=== PATIENT | female | born 1965 | race Caucasian/White ===

== ENCOUNTER 2017-05-11 19:56 | Observation (INO) | payer OTHER ==
[2017-05-11] MEDS ORDERED: D50W 25 GM/50 ML SYRINGE IV ONE (21:08)
[2017-05-11 21:35] LABS: Absolute Lymphocytes (CBC) 1.3 K/uL (0.7-4.9); Absolute Monocytes 0.4 K/uL (0.1-1.3); Absolute Neutrophil 3.3 K/uL (1.8-8.0); Basophils % 0.4 % (0-1.3); Eosinophils % 6.1 % (0-4.4); Hematocrit 42.7 % (36.0-45.0); Lymphocytes % 24.7 % (15.3-44.8); MCH 31.3 pg (27.0-35.0); MCV 94.5 fL (80-100); MPV 9.8 fL (7.6-11.3); Monocytes % 7.2 % (3.3-12.3); RBC Red Blood Cell Count 4.52 M/uL (3.86-4.86)
[2017-05-11 21:38] LABS: Protime INR 1.03
[2017-05-11 21:44] LABS: Potassium 3.8 mEq/L (3.6-5.0)
[2017-05-11 21:48] LABS: Urine Blood 2+ (NEG); Urine Glucose NEGATIVE (NEG); Urine Protein 3+ (NEG)
[2017-05-11 21:50] LABS: Albumin 3.2 g/dL (3.2-5.5); Bilirubin Direct 0.1 mg/dL (0-0.2); Bilirubin Total 0.6 mg/dL (0.3-1.2); Protein, Total 6.1 g/dL (6.0-8.3)
[2017-05-11 21:54] LABS: Urine Bacteria LOADED /HPF (<20); Urine Culture Reflex Order REFLEXED; Urine Mucus LIGHT /HPF (NONE SEEN)
[2017-05-11 22:01] LABS: Barbiturates POSITIVE; Benzodiazepines NEGATIVE; Cocaine NEGATIVE; METHAMPHETAM NEGATIVE; Opiates NEGATIVE; Phencyclidine NEGATIVE; THC Cannibis NEGATIVE
--- NOTE | 2017-05-11 22:14 | RAD REPORT ---
EXAM DESCRIPTION: CT - Head Brain Wo Cont - 05/11/2017 9:49 pm CLINICAL HISTORY: Altered mental status, Lyme disease COMPARISON: April 11 TECHNIQUE: Axial 5 mm thick images of the head were obtained without IV contrast. All CT scans are performed using dose optimization technique as appropriate and may include automated exposure control or mA/KV adjustment according to patient size. FINDINGS: No intracranial hemorrhage, mass, edema or shift of mid-line structures. No acute cortical based infarction. No cortical edema or sulcal effacement. Volume loss changes are present prominent for patient age. Ventricular size is in proportion to volume loss. White matter signal abnormalities are similar to prior imaging. Mastoid air cells and visualized portions of the paranasal sinuses are clear. No acute bony findings. IMPRESSION: No hemorrhage, mass or acute infarction. Atrophy changes and white matter signal abnorma lities are similar to prior imaging.
[2017-05-11] MEDS ORDERED: NA CHLORIDE 0.9% 1,000 ML ONE (23:30)
[2017-05-11] MEDS ORDERED: CEFTRIAXONE/SWI 1gm 1 GM/10 ML SYR ONE (23:31)
--- NOTE | 2017-05-12 00:16 | EDPHYS ---
Physician Documentation [facility] Name: Cherrie Doan Age: 52 yrs Sex: Female : 1965 Arrival Date: 05/11/2017 Time: 20:00 Bed 14 Private MD: ED Physician Jesse James HPI: 05/12 00:04 This 52 yrs old Female presents to ER via EMS with complaints of Pain and pm1 altered mental status. 00:04 The patient presents with decreased responsiveness. Onset: The symptoms/episode pm1 began/occurred today. Possible causes: possible prescribed drug. notes that she gets sedated from her baclofen. Associated signs and symptoms:. Patient's baseline: Neuro: alert and fully oriented, Motor: no deficits, bed ridden per . Unable to obtain HPI due to altered mental status. The patient has experienced similar episodes in the past, a few times. The patient has been recently been admitted at [facility], for similar complaints, 1 month ago with similar complaints. Patient was screaming in pain yesterday at 0400 in the morning according to the . Patient has not taken Dilaudid for the past four days because she ran out. her dosage was increased but she did not get a new prescription. reports that she gets groggy from baclofen but she is more groggy than her usual. 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 - Social history:: Smoking status: Patient uses tobacco products, smokes one-half pack cigarettes per day. ROS: 05/12 01:00 Constitutional: Negative for fever, chills, and weight loss. pm1 Eyes: Negative for injury, pain, redness, and discharge, ENT: Negative for injury, pain, and discharge, Neck: Negative for injury, pain, and swelling, Cardiovascular: Negative for chest pain, palpitations, and edema, Respiratory: Negative for shortness of breath, cough, wheezing, and pleuritic chest pain, Abdomen/GI: Negative for abdominal pain, nausea, vomiting, diarrhea, and constipation, Back: Negative for injury and pain, : Negative for injury, bleeding, discharge, and swelling, Patient self catherterizes at home MS/Extremity: Negative for injury and deformity, Skin: Negative for injury, rash, and discoloration. Neuro: Positive for altered mental status. Exam: 01:05 Head/Face: Normocephalic, atraumatic. pm1 01:05 Neck: Trachea midline, no thyromegaly or masses palpated, and no cervical lymphadenopathy. Supple, full range of motion without nuchal rigidity, or vertebral point tenderness. No Meningismus. Chest/axilla: Normal chest wall appearance and motion. Nontender with no deformity. No lesions are appreciated. Cardiovascular: Regular rate and rhythm with a normal S1 and S2. No gallops, murmurs, or rubs. Normal PMI, no JVD. No pulse deficits. Respiratory: Lungs have equal breath sounds bilaterally, clear to auscultation and percussion. No rales, rhonchi or wheezes noted. No increased work of breathing, no retractions or nasal flaring. Abdomen/GI: Soft, non-tender, with normal bowel sounds. No distension or tympany. No guarding or rebound. No evidence of tenderness throughout. Back: No spinal tenderness. No costovertebral tenderness. Full range of motion. Skin: Warm, dry with normal turgor. Normal color with no rashes, no lesions, and no evidence of cellulitis. MS/ Extremity: Pulses equal, no cyanosis 01:05 Constitutional: The patient appears in no acute distress, non-toxic, well developed, well groomed, well nourished. 01:05 Eyes: Periorbital structures: appear normal, Pupils: equal, round, and reactive to light and accomodation, Lids and lashes: appear normal. 01:05 ENT: External ear(s): are unremarkable, Ear canal(s): are normal, TM's: are normal. 01:05 Neuro: Orientation: Not oriented to person, place, time, situation, Mentation: responsive to pain. 01:05 Unable to obtain exam due to altered mental status. Vital Signs: 05/11 20:20 BP 119 / 77; Pulse 88; Resp 16; Temp 97.5(O); Pulse Ox 94% ; kb1 21:37 BP 103 / 70; Pulse 62; Resp 12; Pulse Ox 98% ; kb1 22:17 BP 94 / 67; Pulse 59; Resp 14; Pulse Ox 98% ; kb1 23:27 BP 101 / 70; Pulse 57; Resp 10; Pulse Ox 98% ; kb1 05/12 00:32 BP 110 / 72; Pulse 53; Resp 12; Pulse Ox 100% ; kb1 05/11 20:20 When asked about pain Pt states "all over" no other response kb MDM: 20:01 Patient medically screened. pm1 05/12 00:15 Data reviewed: vital signs. Data interpreted: Pulse oximetry: on room air is 98 %. pm1 Interpretation: normal. Counseling: I had a detailed discussion with the patient and/or guardian regarding: the historical points, exam findings, and any diagnostic results supporting the discharge/admit diagnosis, lab results, radiology results, the need for further work-up and treatment in the hospital. 05/11 20:35 Order name: Urine Microscopic Only pm1 05/11 20:35 Order name: Basic Metabolic Panel pm1 05/11 20:35 Order name: Blood Culture Adult (2) pm05/11 20:35 Order name: BNP pm05/11 20:35 Order name: CBC with Diff pm05/11 20:35 Order name: Lactate pm05/11 20:35 Order name: LFT's pm05/11 20:35 Order name: Lipase pm05/11 20:35 Order name: Procalcitonin pm05/11 20:35 Order name: Protime (+inr) pm05/11 20:35 Order name: Ptt, Activated pm05/11 20:35 Order name: Troponin (emerg Dept Use Only) pm05/11 20:35 Order name: UDS pm05/11 21:36 Order name: Urine Dipstick--Ancillary (enter results) em1 05/11 20:35 Order name: Chest Single View XRAY pm05/11 21:37 Order name: CBC with Automated Diff; Complete Time: 22:56 EDMS 05/11 21:39 Order name: Protime (+INR); Complete Time: 22:56 EDMS 05/11 21:39 Order name: PTT, Activated Partial Thromb; Complete Time: 22:56 EDMS 05/11 21:44 Order name: Basic Metabolic Panel; Complete Time: 03:14 EDMS 05/11 21:44 Order name: Lipase; Complete Time: 03:14 EDMS 05/11 21:44 Order name: Lactate; Complete Time: 22:56 EDMS 05/11 21:48 Order name: Urine Dipstick-Ancillary; Complete Time: 22:56 EDMS 05/11 21:50 Order name: Liver (Hepatic) Function; Complete Time: 03:14 EDMS 05/11 21:51 Order name: Troponin (Emerg Dept Use Only); Complete Time: 22:56 EDMS 05/11 21:54 Order name: Urine Microscopic Only; Complete Time: 22:56 EDMS 05/11 22:01 Order name: Glucose, Ancillary Testing; Complete Time: 22:56 EDMS 05/11 22:01 Order name: Glucose, Ancillary Testing; Complete Time: 22:56 EDMS 05/11 22:01 Order name: Urine Drug Screen; Complete Time: 22:56 EDMS 05/11 22:15 Order name: Procalcitonin; Complete Time: 22:56 EDMS 05/11 22:33 Order name: BNP B-Type Natriuretic Peptide; Complete Time: 22:56 EDMS 05/11 20:35 Order name: Accucheck; Complete Time: 21:23 pm05/11 20:35 Order name: Cardiac monitoring; Complete Time: 21:23 pm05/11 20:35 Order name: EKG - Nurse/Tech; Complete Time: 21:23 pm05/11 20:35 Order name: IV Saline Lock - Large Bore; Complete Time: 21:23 pm05/11 20:35 Order name: Labs collected and sent; Complete Time: 21:23 pm05/11 20:35 Order name: O2 Per Protocol; Complete Time: 21:23 pm05/11 20:35 Order name: O2 Sat Monitoring; Complete Time: 21:23 pm1 05/11 20:35 Order name: Urine Dipstick-Ancillary (obtain specimen); Complete Time: 21:34 pm1 05/11 20:35 Order name: Urine Test (obtain specimen); Complete Time: 21:34 pm1 05/11 20:35 Order name: CT Head Brain wo Cont pm1 05/11 22:14 Order name: CT; Complete Time: 22:56 EDMS Administered Medications: 05/11 21:15 Drug: D50W 50 ml Route: IVP; Site: right antecubital; [facility] 22:31 Follow up: Response: Blood sugar is elevated [facility] 23:38 Drug: Rocephin 1 grams Route: IV; Rate: calculated rate; Site: right antecubital; [facility] 05/12 00:34 Follow up: Response: No adverse reaction [facility] 05/11 23:38 Drug: NS 0.9% 1000 ml Route: IV; Rate: 1000 ml; Site: right antecubital; [facility] 05/12 00:34 Follow up: IV Status: Completed infusion kb1 Point of Care Testing: Blood Glucose: 05/11 20:40 Blood Glucose: 67 mg/dL; kb1 22:05 Blood Glucose: 184 mg/dL; kb1 Ranges: Critical Glucose Levels:Adult <50 mg/dl or >400 mg/dl <40 mg/dl or >180 mg/dl Disposition: 05/12 03:50 Co-signature as Attending Physician, Jesse James MD. pk Disposition: 05/12/17 00:16 Hospitalization ordered by Nisha Murillo for Observation. Preliminary diagnosis are Altered mental status, unspecified, Urinary tract infection, site not specified, Hypoglycemia, unspecified. - Bed requested for Telemetry/MedSurg (observation). - Status is Observation. kb1 - Condition is Stable. - Problem is new. - Symptoms have improved. UTI on Admission? Yes Signatures: Dispatcher [employer] EDMS Evelyn Triplett, RN Jesse Wren MD MD pkMarco Colmenares, GEOPHYSICS PROFESSOR GEOPHYSICS PROFESSOR pm1 Malathi Chaidez RN RN kb
--- NOTE | 2017-05-12 00:16 | ER ---
Nurse's Notes [facility] Name: Cherrie Doan Age: 52 yrs Sex: Female : 1965 Arrival Date: 05/11/2017 Time: 20:00 Bed 14 Private MD: Diagnosis: Altered mental status, unspecified;Urinary tract infection, site not specified;Hypoglycemia, unspecified Presentation: 05/11 20:11 Presenting complaint: EMS states: called by for increased pain over the past kb1 two days. Transition of care: patient was received from another setting of care (hospital). Onset of symptoms was May 09, 2017. Care prior to arrival: None. 20:11 Method Of Arrival: EMS kb1 20:11 Acuity: ARISTEO 3 kb1 Triage Assessment: 20:20 General: Appears in no apparent distress. Behavior is drowsy. Pain: Complains of pain kb1 in "all over". Neuro: Level of Consciousness is lethargic, reports "sometimes this is normal for her, sometimes its not". Cardiovascular: Patient's skin is warm and dry. Respiratory: Respiratory effort is even, unlabored, Respiratory pattern is regular, symmetrical. GI: Reports reports Pt has been eating less than normal due to her pain. : No signs and/or symptoms were reported regarding the genitourinary system. 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 - Social history:: Smoking status: Patient uses tobacco products, smokes one-half pack cigarettes per day. Screenin:27 Abuse screen: Unable to answer questions. Nutritional screening: No deficits noted. kb1 Tuberculosis screening: No symptoms or risk factors identified. 20:29 Fall Risk Secondary diagnosis (15 points) decreased responsiveness. kb1 Assessment: 20:27 Reassessment: No changes from previously documented assessment. kb1 20:32 Reassessment: reports Pt has bee out of pain medication (dilaudid) over the kb1 past two days, has a prescription but cannot get it filled until tomorrow. 21:34 Reassessment: Pt cleaned of incontinence episode. kb1 21:35 Reassessment: Non-Responsive to painful stimuli. kb1 23:22 Reassessment: Patient and/or family updated on plan of care and expected duration. Pain kb1 level reassessed. General: Appears in no apparent distress. Behavior is unresponsive. Pain: Unable to use pain scale. Patient is unresponsive. Neuro: Level of Consciousness is unresponsive, does not respond to painful stimuli. Cardiovascular: Patient's skin is warm and dry. Rhythm is sinus bradycardia. Respiratory: Airway is patent Respiratory effort is shallow, Respiratory pattern is hypoventilation. 05/12 00:30 Reassessment: Sal () [phone]. kb1 00:33 Reassessment: No changes from previously documented assessment. kb1 Vital Signs: 05/11 20:20 BP 119 / 77; Pulse 88; Resp 16; Temp 97.5(O); Pulse Ox 94% ; kb1 21:37 BP 103 / 70; Pulse 62; Resp 12; Pulse Ox 98% ; kb1 22:17 BP 94 / 67; Pulse 59; Resp 14; Pulse Ox 98% ; kb1 23:27 BP 101 / 70; Pulse 57; Resp 10; Pulse Ox 98% ; kb1 05/12 00:32 BP 110 / 72; Pulse 53; Resp 12; Pulse Ox 100% ; kb1 05/11 20:20 When asked about pain Pt states "all over" no other response kb1 ED Course: 20:00 Patient arrived in ED. kb1 20:01 Marco Cardoso NP is PHCP. pm1 20:01 Jesse James MD is Attending Physician. pm1 20:11 Malathi Chaidez, MARY is Primary Nurse. kb1 20:15 Triage completed. kb1 20:20 Arm band placed on. kb1 20:29 Patient has correct armband on for positive identification. Bed in low position. Call kb1 light in reach. Side rails up X 1. Pulse ox on. NIBP on. 20:29 No provider procedures requiring assistance completed. kb1 20:48 EKG done, by ED staff, reviewed by Marco Cardoso NP. kb1 20:58 Radiology exam delayed due to IV insertion attempt and/or patient not having nb1 appropriate IV at this time. 21:22 Initial lab(s) drawn, by me, sent to lab. Inserted saline lock: 22 gauge in right [facility] antecubital area, using aseptic technique. 21:34 Straight cath inserted, using sterile technique, Specimen obtained. kb1 21:36 personnel monitor on. kb1 21:43 X-ray completed. Portable x-ray completed in exam room. [facility] 05/12 00:15 Nisha Murillo MD is Hospitalizing Provider. pm1 01:19 Patient admitted, IV remains in place. kb Administered Medications: 05/11 21:15 Drug: D50W 50 ml Route: IVP; Site: right antecubital; [facility] 22:31 Follow up: Response: Blood sugar is elevated [facility] 23:38 Drug: Rocephin 1 grams Route: IV; Rate: calculated rate; Site: right antecubital; [facility] 05/12 00:34 Follow up: Response: No adverse reaction [facility] 05/11 23:38 Drug: NS 0.9% 1000 ml Route: IV; Rate: 1000 ml; Site: right antecubital; [facility] 05/12 00:34 Follow up: IV Status: Completed infusion [facility] Point of Care Testing: Blood Glucose: 05/11 20:40 Blood Glucose: 67 mg/dL; kb1 22:05 Blood Glucose: 184 mg/dL; kb Ranges: Outcome: 05/12 00:16 Decision to Hospitalize by Provider. pm1 01:19 Admitted to Tele accompanied by nurse, via stretcher, room 204, Report called to Urszula solis RN 01:19 Condition: good 01:19 Instructed on the need for admit. 01:21 Patient left the ED. kb1 Signatures: Marco Cardoso, [employer] AND [employer]ERIES PROFESSOR pm1 Nataliia Bryant 1 Maria Eugenia Caratgena 1 Malathi Chaidez RN RN kb1 Corrections: (The following items were deleted from the chart) 00:31 25 23:22 GI: kb1 kb1
--- NOTE | 2017-05-12 01:04 | P.HP ---
Certification for Inpatient Patient admitted to: Observation With expected LOS: <2 Midnights Practitioner: I am a practitioner with admitting privileges, knowledge of patient current condition, hospital course, and medical plan of care. Services: Services provided to patient in accordance with Admission requirements found in Title 42 Section 412.3 of the Code of Federal Regulations Patient History Date of Service: 05/12/17 Reason for admission: acute encephalopathy History of Present Illness: Ms Doan is a 52 years old woman with history of demylinating syndrome, self urinary catheterization TID, treated for multiple sclerosis and lyme disease, chronic pain syndrome on Dilaudid and baclofen treatment chronically, she also takes pregabalin and clonazepam who become gradually more sleepy and lethargic in the last couple of days. There are no history of fever or chills. No cough or SOB. The patient was admitted about 1 month ago with similar symptoms. Currently Lab work is remarkable for normal WBC count, UA is abnormal consistent with UTI. She is afebrile, unresponsive to noxious stimulus. Allergies albumin human [From Rebif] Allergy (Severe, Verified 08/24/16 00:07) Anaphylaxis interferon beta-1a [From Rebif] Allergy (Severe, Verified 08/24/16 00:07) Anaphylaxis levofloxacin [From Levaquin] Allergy (Severe, Verified 08/24/16 00:07) Anaphylaxis Sulfa (Sulfonamide Antibiotics) Allergy (Verified 08/24/16 00:07) Hives/Rash Home Medications: Baclofen [Lioresal*] 10 mg PO TID 08/23/16 Primidone [Mysoline *] 250 mg PO BID 08/23/16 Zolpidem Tartrate [Ambien*] 10 mg PO BEDTIME 08/23/16 Clonazepam [Klonopin*] 1 tab PO BID 04/11/17 Hydromorphone [Dilaudid*] 1 tab PO QID PRN 04/11/17 Pregabalin [Lyrica] 200 mg PO BID 04/11/17 Amoxicillin/Potassium Clav [Augmentin 875-125 Tablet] 1 each PO BID #14 tablet 04/12/17 - Past Medical/Surgical History Diabetic: No -: Lyme disease, Neurology-Dr. 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 She is dependent on her . She has 2 sons. - Family History Father -: Heart disease - Social History Smoking Status: Light Tobacco smoker (1-9 cigarettes/day) Smoking therapy provided: No Patient receptive to therapy: No Alcohol use: No CD- Drugs: No Caffeine use: No Place of Residence: Home Review of Systems is unable to be obtained (unresponsive) Physical Examination - Physical Exam General: In no apparent distress, Other (obtunded) HEENT: Atraumatic, PERRLA, Other (mucous membrane dry), Sclerae nonicteric Neck: Supple, 2+ carotid pulse no bruit, No LAD, Without JVD or thyroid abnormality Respiratory: Diminished, Expiratory wheezes Cardiovascular: Regular rate/rhythm, Normal S1 S2 Gastrointestinal: Normal bowel sounds, No tenderness Musculoskeletal: No tenderness Integumentary: No rashes Neurological: Abnormal strength, Abnormal tone, Abnormal affect Lymphatics: No axilla or inguinal lymphadenopathy - Studies Laboratory Data (last 24 hrs) 05/11/17 23:44: Sodium 140, Potassium 3.8, BUN 9, Creatinine 0.74, Glucose 134 H , Total Bilirubin 0.6, AST 18, ALT 16, Alkaline Phosphatase 114, Lipase 14 L 05/11/17 21:15: PT 12.2, INR 1.03, APTT 31.9 05/11/17 21:15: WBC 5.4, Hgb 14.1, Hct 42.7, Plt Count 262 05/11/17 21:15: B-Natriuretic Peptide 15 Assessment and Plan - Problems (Diagnosis) (1) Acute encephalopathy Current Visit: Yes Status: Acute (2) Demyelinating disease Current Visit: Yes Status: Acute (3) Dehydration Current Visit: No Status: Acute (4) UTI (urinary tract infection) Current Visit: No Status: Acute Qualifiers: Urinary tract infection type: site unspecified Hematuria presence: without hematuria Qualified Code(s): N39.0 - Urinary tract infection, site not specified (5) Lyme disease Current Visit: No Status: Chronic - Plan The patient will be admitted to the hospital due to acute encephalopathy secondary to UTI, volume depletion, sedative medication in context of demyelinating syndrome. CT head shows no acute abnormalities. Will hold all her sedative medication at this point, start IV fluids, Rocephin for UTI. - Advance Directives Does patient have a Living Will: Yes Does patient have a Durable POA for Healthcare: Yes - Code Status/Comfort Care Code Status Assessed: Yes Code Status: Full Code
[2017-05-12] MEDS ORDERED: ONDANSETRON 4 MG/2 ML VIAL IV PRN (01:47)
[2017-05-12 02:21] VITALS: BMI 15.7
[2017-05-12] MEDS: NA CHLORIDE 0.9% 1,000 ML IV SCH ×3 (02:43→21:56)
[2017-05-12 05:33] LABS: Absolute Lymphocytes (CBC) 2.6 K/uL (0.7-4.9); Absolute Monocytes 0.6 K/uL (0.1-1.3); Absolute Neutrophil 1.7 K/uL (1.8-8.0); Basophils % 0.4 % (0-1.3); Eosinophils % 5.3 % (0-4.4); Hematocrit 44.9 % (36.0-45.0); Lymphocytes % 49.5 % (15.3-44.8); MCH 31.2 pg (27.0-35.0); MPV 10.5 fL (7.6-11.3); Monocytes % 11.4 % (3.3-12.3); RBC Red Blood Cell Count 4.78 M/uL (3.86-4.86)
[2017-05-12 05:41] LABS: Potassium 4.5 mEq/L (3.6-5.0)
--- NOTE | 2017-05-12 07:40 | RAD REPORT ---
EXAM DESCRIPTION: RAD - Chest Single View - 05/11/2017 9:44 pm CLINICAL HISTORY: Increasing chest pain, smoking history COMPARISON: April 12April 11; August 2016 TECHNIQUE: AP portable chest image was obtained 2138 hours . FINDINGS: No focal consolidation, new mass or failure finding. Interstitial markings are mildly prom inent but unchanged. Nodularity in the upper right lung field has not changed back to August 2016. Sign ificant, acute lung parenchymal process is not suspected. Trachea is midline. Heart and vasculature a re normal. No measurable pleural effusion and no pneumothorax. No gross bony abnormality seen. No acu te aortic findings suspected. IMPRESSION: No acute cardiopulmonary process. No significant change from comparison imaging.
[2017-05-12] MEDS ORDERED: clonazePAM 0.5 MG TAB PO PRN (10:17)
--- NOTE | 2017-05-12 11:11 | EKG ---
Test Date: 2017-05-11 Test Time: 20:48:34 Electric Relay Tester: ORLIN MEASUREMENT RESULTS: Intervals: Rate: 64 VA: 152 QRSD: 78 QT: 408 QTc: 420 [place]: P: 76 VA: 152 QRS: -78 T: 41 INTERPRETIVE STATEMENTS: Normal sinus rhythm Left axis deviation Abnormal ECG Compared to ECG 04/11/2017 09:53:52 Left-axis deviation now present Left anterior fascicular block no longer present ST (T wave) deviation no longer present Electronically Signed On 05-12-17 11:09:54 CDT by Pascual Pizarro
[2017-05-12] MEDS: HYDROMORPHONE ORAL 2 MG TAB PO PRN ×2 (11:20→16:35)
[2017-05-12] MEDS: BACLOFEN 10 MG TAB PO SCH ×2 (13:45→21:55)
--- NOTE | 2017-05-12 16:47 | PN ---
Date of Progress Note: 05/12/2017 Subjective: The patient seen and examined. Chart reviewed and case discussed with RN. The patient is much more awake and alert, complaining of pain in her back. at the bedside. Treatment pl an explained. All questions answered. The patient's states that she has been seeing Pain Ma nagement for past at least 4 years and has been on these medications for her pain and anxiety. Review of Systems: Negative except as above. Medications: Reviewed. Physical Examination: Vital Signs: Temperature 96.3, heart rate 59, blood pressure 135/71, respirations 16, O2 95% on room air. General: Awake, alert, oriented x3, in some mild distress. Ill-appearing female, appears older than stated age. CV: S1, S2. No murmurs. Peripheral pulses present. Respiratory: Moving air well bilaterally. No wheezing. Abdomen: Soft, nontender, nondistended. Positive bowel sounds. Extremities: No clubbing, cyanosis, or edema. Neuro: The patient has severe generalized weakness due to her MS. Laboratory Data: Sodium 146, potassium 4.5, chloride 110, CO2 29, BUN 10, creatinine 0.72, glucose 8 0, calcium 8.7. WBC 5.2, H and H 14.9, 44.9, platelets 237, neutrophils 33.4%. Assessment And Plan: A 52-year-old female with: 1.Acute metabolic encephalopathy, improving. May be secondary to urinary tract infection versus sed ated medications. 2.Urinary tract infection. Acute cystitis without hematuria. Rocephin has been added. We will fol low up with urine culture. 3.Multiple sclerosis. 4.Chronic pain syndrome on multiple narcotics. 5.Acute dehydration. Continue IV fluids. 6.History of Lyme disease. 7.Neuropathy. Plan: We will restart home medications and follow up closely with the patient. Monitor continuous p ulse ox and neuro checks. Follow up on urine culture. Risk of withdrawal from her chronic pain medi cations. Counseled extensively regarding dose and number of medications the patient is taking. The patient is at risk for adverse effects. We will contact the Pain Management physician to discuss fur ther. The patient apparently has been on these medications over the past 4 years, has severe debilit ating multiple sclerosis. /CHENG Voice ID: [id number] Report ID: [id number]
[2017-05-12] MEDS ORDERED: CEFTRIAXONE/SWI 1gm 1 GM/10 ML SYR IV SCH (21:00)
[2017-05-12] MEDS ORDERED: ZOLPIDEM TARTRATE 10 MG TABLET PO SCH (21:00)
[2017-05-12 21:12] VITALS: O2SAT 97
[2017-05-12] MEDS: PREGABALIN 50 MG CAP PO SCH (21:55)
[2017-05-12] MEDS: PRIMIDONE 250 MG TAB PO SCH (21:55)
[2017-05-13] MEDS ORDERED: FENTANYL CITR 100 MCG/2 ML IV PRN (00:53)
[2017-05-13 05:54] LABS: Absolute Lymphocytes (CBC) 0.9 K/uL (0.7-4.9); Absolute Monocytes 0.3 K/uL (0.1-1.3); Absolute Neutrophil 4.7 K/uL (1.8-8.0); Basophils % 0.4 % (0-1.3); Eosinophils % 0.6 % (0-4.4); Hematocrit 40.8 % (36.0-45.0); MCH 31.1 pg (27.0-35.0); MCV 92.1 fL (80-100); MPV 10.6 fL (7.6-11.3); Monocytes % 4.6 % (3.3-12.3); RBC Red Blood Cell Count 4.43 M/uL (3.86-4.86)
[2017-05-13 07:13] LABS: BUN Blood Urea Nitrogen 6 mg/dL (6-20); Bicarbonate 24 mEq/L (21-31); Glomerular Filtration Rate > 90 mL/min (=/>90); Glucose Level 88 mg/dL (65-120); Potassium 3.8 mEq/L (3.6-5.0); Sodium Level 140 mEq/L (135-145)
[2017-05-13] MEDS: NA CHLORIDE 0.9% 1,000 ML IV SCH (07:21)
[2017-05-13] MEDS: PRIMIDONE 250 MG TAB PO SCH ×2 (09:00→09:36)
[2017-05-13] MEDS: BACLOFEN 10 MG TAB PO SCH ×3 (09:00→09:56)
[2017-05-13] MEDS: PREGABALIN 50 MG CAP PO SCH ×2 (09:00→09:37)
--- NOTE | 2017-05-13 11:17 | RAD REPORT ---
EXAM DESCRIPTION: RAD - Barium Swallow Modified - 05/13/2017 10:55 am CLINICAL HISTORY: Coughing and choking FINDINGS: Laryngeal penetration: Not cleared with honey Aspiration: no cough with honey Pharyngeal Residue:Vallecular, Pyriform Posterior wall. moderate with honey and pudding
[2017-05-13 12:29] VITALS: BP 133/80; TEMP 98.3
--- NOTE | 2017-05-14 05:34 | DS ---
Date of Discharge: 05/13/2017 Admitting Diagnoses: 1.Acute metabolic encephalopathy. 2.History of multiple sclerosis. 3.Acute dehydration. 4.Urinary tract infection, acute cystitis without hematuria. 5.Lyme disease, chronic. 6.Neuropathy. 7.Chronic pain disorder. 8.Opioid dependence. 9.Insomnia. 10.Anxiety disorder, on benzodiazepine. 11.Nicotine dependence with cigarette smoking. 12.Paraplegia secondary to multiple sclerosis. Discharge Diagnoses: 1.Acute metabolic encephalopathy, improving. 2.Urinary tract infection, acute cystitis without hematuria secondary to Escherichia coli. 3.Multiple sclerosis, demyelinating disorder. 4.Chronic pain syndrome with narcotic dependence. 5.Acute dehydration, improved. 6.History of Lyme disease. 7.Neuropathy. 8.Paraplegia. 9.Anxiety disorder, on benzodiazepine. 10.Insomnia, on zolpidem. 11.Nicotine dependence with cigarette smoking. Hospital Course: The patient is a 52-year-old female, came in with acute metabolic encephalopathy. She has a past medical history of demyelinating syndrome, self catheterization for urination, has bee n treated in the past for multiple sclerosis and Lyme disease, on multiple narcotics and benzodiazepi ne and for her chronic pain syndrome, the patient is on Dilaudid, baclofen, and clonazepam. The pavan ent had been lethargic. The patient's sedative medications were held. She was treated for her UTI. The patient's mental status improved back to baseline according to the . Her electrolytes re mained stable. Her procal was negative. She was not septic. The patient's urine culture showed E. coli, which was essentially pansensitive except to ampicillin and Unasyn. The patient and ramirez d been in contact with [facility] for hosp[facility]. [facility] rv[facility] were [facility]. The patient was then discharged home in fair condition with hospice care at [facility]. Medications: As per medication reconciliation list. Followup: Follow up with primary care physician as needed. Discharge Instructions: Return here for worsening condition. Initiate care and comfort measures wit home hospice. Diet: Regular diet. Activity: Fall precautions. Physical Examination: General: Awake, alert, and oriented x3, in some mild distress, appears older than stated age female. CV: S1, S2. No murmurs. Peripheral pulses present. Respiratory: Moving air well bilaterally. No wheezing. Abdomen: Soft, nontender, and nondistended. Positive bowel sounds. Extremities: No clubbing, cyanosis, or edema. Neuro: Paraplegia. SA/MODL Voice ID: [id number] Report ID: [id number]
== END 2017-05-13 15:13 | disposition hospice, home (50) ==
LOC: ER 19:56 → ERHOLD 05-12 00:16 → 2ND 05-12 01:07
PROVIDERS: ADMIT Internal Medicine; ATTEND Internal Medicine
DX: G93.41 Metabolic encephalopathy (principal); N30.00 Acute cystitis without hematuria; B96.20 Unspecified Escherichia coli [E. coli] as the cause of diseases classified elsewhere; E86.0 Dehydration; G35 Multiple sclerosis; G89.4 Chronic pain syndrome; G62.9 Polyneuropathy, unspecified; G82.20 Paraplegia, unspecified; F41.9 Anxiety disorder, unspecified; G47.00 Insomnia, unspecified; A69.20 Lyme disease, unspecified; G37.9 Demyelinating disease of central nervous system, unspecified; F17.210 Nicotine dependence, cigarettes, uncomplicated; Z88.2 Allergy status to sulfonamides
CPT/HCPCS: 36415 ×2; 51702; 70450; 71045; 74230; 80048 ×3; 80076; 80307 ×9; 82962 ×2; 83605; 83690; 83880; 84145; 84484; 85025 ×3; 85610; 85730; 87040 ×2; 87077 ×2; 87086; 87088; 87186 ×2; 92526; 92610; 93005; 96361; 96374; 96375; 99285; G0378 ×2; J0696 ×2; J3010; J7030 ×5; 81003; 81015